=== PATIENT | female | born 1970 | race Caucasian/White ===

== ENCOUNTER 2019-02-07 13:23 | Emergency (ER) | payer OTHER ==
[~2019-02-07] VITALS: Ht 167.6 cm; Wt 83.9 kg
--- NOTE | 2019-02-07 13:34 | NUR ---
CAME IN FOR FACIAL INJURY, +KO "MY DOG PULLED THE LEASH AND HIT MY FACE IN WALL", C/O DIZZINESS,R EYE SWELLING, R SHOULDER PAIN, SHANTE ABRASION, R FOOT ABRASION AND PAIN. TO ER BED 7, HOOKED TO [place], CHANGED TO [facility], AWAITING MD LUCERO.
--- NOTE | 2019-02-07 13:42 | NUR ---
TIERNEY SARAVIA AT BEDSIDE
[2019-02-07] MEDS ORDERED: ACETAMINOPHEN 325 MG TABLET PO ONE (14:00)
--- NOTE | 2019-02-07 14:00 | NUR ---
WHEELED OUT VIA [facility] FOR CT SCAN
[2019-02-07] MEDS ORDERED: ACETAMINOPHEN ES 500 MG TABLET ONE (14:04)
--- NOTE | 2019-02-07 15:23 | NUR ---
CALLED DR RAMEY, LEFT VOICEMAIL.
[2019-02-07] MEDS ORDERED: TRAMADOL HCL 50 MG TABLET PO ONE (15:30)
[2019-02-07] MEDS ORDERED: ONDANSETRON 4 MG TAB.RAPDIS PO ONE (15:30)
[2019-02-07] MEDS ORDERED: ONDANSETRON 4 MG TAB.RAPDIS ONE (15:37)
[2019-02-07] MEDS ORDERED: TRAMADOL HCL 50 MG TABLET ONE (15:37)
--- NOTE | 2019-02-07 16:10 | NUR ---
ROPE MAKER AT BEDSIDE
--- NOTE | 2019-02-07 18:20 | NUR ---
Patient discharged to home with son in stable condition. Written and verbal after care instructions given. Patient verbalizes understanding of instruction.
[2019-02-07 18:24] VITALS: BP 139/74
== END 2019-02-07 18:24 | disposition home or self-care (01) ==
LOC: ER 13:32
DX: S02.31XA Fracture of orbital floor, right side, initial encounter for closed fracture (principal); S52.121A Displaced fracture of head of right radius, initial encounter for closed fracture; S00.81XA Abrasion of other part of head, initial encounter; S40.812A Abrasion of left upper arm, initial encounter; S90.811A Abrasion, right foot, initial encounter; W18.39XA Other fall on same level, initial encounter; Y93.K1 Activity, walking an animal; Y92.89 Other specified places as the place of occurrence of the external cause; Y99.8 Other external cause status
CPT/HCPCS: 29105; 70450; 70486; 73080; 99284; Q0162